=== PATIENT | female | born 1985 | race Two or more races ===

== ENCOUNTER → 2016-09-22 | Outpatient (REF) | payer OTHER | LOC: M LAB REF 16:42 | PROVIDERS: ATTEND Nurse Practitioner Family | DX: Z32.01 Encounter for pregnancy test, result positive (principal) ==

== ENCOUNTER → 2016-10-14 | Outpatient (CLI) | payer OTHER | LOC: M LRY 11:05 | PROVIDERS: ATTEND Advanced Practice Midwife | DX: Z36 Encounter for antenatal screening of mother (principal); Z3A.00 Weeks of gestation of pregnancy not specified ==

== ENCOUNTER → 2016-10-28 | Outpatient (CLI) | payer OTHER | LOC: M LRY 09:25 | PROVIDERS: ATTEND Advanced Practice Midwife | DX: Z36 Encounter for antenatal screening of mother (principal); Z3A.00 Weeks of gestation of pregnancy not specified ==

== ENCOUNTER → 2016-12-29 | Outpatient (CLI) | payer OTHER ==
--- NOTE | 2016-12-30 07:51 | REP ---
Clinical: Anatomical evaluation. Comparison: None . Findings: Examination demonstrates a single live intrauterine in variable presentation. motion is identified by technologist. Placenta is noted anteriorly and grade zero without evidence for placenta previa or abruption. Amniotic fluid volume is normal. Cervix measures 4.1 cm in length and appears closed. No evidence for nuchal cord. Gestational age by current measurements 19 weeks 6 days with BERTHA 05/19/2017 . FHR equals 147 beats per minute. BPD 4.8 cm 20 weeks 4 days HC 17.2 cm 19 weeks 6 days AC 15.2 cm 20 weeks 3 days FL 3.1 cm 19 weeks 5 days HL 3.1 cm 20 weeks 1 day HC/AC ratio 1.14 Estimated weight 330 grams ( 54th percentile). Anatomical assessment demonstrates normal structures including cranium, choroid plexus, cavum, cerebellum/posterior fossa, lungs, diaphragm, stomach, cord insertion/three-vessel cord, kidneys/bladder, spine, and upper extremities. Limited evaluation of the facial features, heart/ventricular outflow tracts and lower extremities noted. Impression: Single live intrauterine in cephalic presentation. Anatomical limitations as described above may warrant reevaluation and follow-up. Signed by Romie Noyola MD 12/30/2016 07:43 A
== END ==
LOC: M SMT 13:45
PROVIDERS: ATTEND Specialist
DX: Z34.82 Encounter for supervision of other normal pregnancy, second trimester (principal); Z3A.19 19 weeks gestation of pregnancy

== ENCOUNTER → 2017-02-10 | Outpatient (CLI) | payer OTHER ==
[~2017-02-10] MED LIST: ACET50TA PO; IBUP-1114 PO; PRENTAB9 PO; RANI1TAB6 PO
[2017-02-10 18:20] LABS: MEAN CORPUSCULAR HEMOGLOBIN 30.5 pg (27.0-33.0); MEAN CORPUSCULAR VOLUME 87.1 fl (80.0-96.0); RED CELL DISTRIBUTION WIDTH 13.4 % (11.5-14.5); WHITE BLOOD COUNT 15.8 K/mm3 (4.0-10.0)
== END ==
LOC: M LRY 10:29
PROVIDERS: ATTEND Advanced Practice Midwife
DX: Z36 Encounter for antenatal screening of mother (principal); Z3A.00 Weeks of gestation of pregnancy not specified

== ENCOUNTER → 2017-02-14 | Outpatient (CLI) | payer OTHER ==
--- NOTE | 2017-02-14 16:25 | REP ---
Obstetric ultrasound for follow-up of anatomy: The prior study dated 12/29/2016 was unable to adequately demonstrate the facial features, heart and ventricular outflow tracts and lower extremities. On the study today the four-chamber view of the heart and the upper and lower extremities are adequately demonstrated and are unremarkable. The cardiac right and left ventricular outflow tracts are again unable to be satisfactorily demonstrated. There is a single intrauterine gestation in a vertex presentation. There is movement and cardiac activity, the heart rate is 144 beats per minute. The placenta is right lateral without previa or abruptio and is grade one maturity. The amniotic fluid volume subjectively is normal. The cervix measures 3.8 cm length. Gestational age by the ultrasound today is 26 weeks 6 days with an BERTHA of 05/17/2017. Gestational age by the first ultrasound is 26 weeks 4 days. weight is 1000, 21 grams (2 pounds, 4 ounces). This is the 55th percentile for 26 weeks 4 days. Signed by Nikko Stephens MD 02/14/2017 04:16 P
== END ==
LOC: M SMT 14:12
PROVIDERS: ATTEND Advanced Practice Midwife
DX: Z34.82 Encounter for supervision of other normal pregnancy, second trimester (principal); Z36 Encounter for antenatal screening of mother; Z3A.26 26 weeks gestation of pregnancy

== ENCOUNTER → 2017-03-10 | Outpatient (CLI) | payer OTHER ==
--- NOTE | 2017-03-10 15:52 | REP ---
Clinical: Anatomical re-evaluation. Comparison: 02/14/2017 . Findings: Examination demonstrates a single live intrauterine in cephalic presentation. motion is identified by technologist. Placenta is noted right laterally and grade zero without evidence for placenta previa or abruption. Amniotic fluid volume is normal. Cervix measures 3.9 cm in length and appears closed. No evidence for nuchal cord. Gestational age by LMP 30 weeks 0 days with BERTHA 05/19/2017 . Gestational age by current measurements 30 weeks 1 day with BERTHA 05/18/2017 . FHR equals 150 beats per minute. Amniotic fluid index equals 10.8 cm (9.0 - 23.4). Estimated weight 1593 grams ( 54th percentile). Anatomical assessment demonstrates normal structures including cranium, choroid plexus, cavum, cerebellum/posterior fossa, lungs, four-chamber heart/ left ventricular outflow tracts, diaphragm, stomach, cord insertion/three-vessel cord, kidneys/bladder, spine. Impression: Single live intrauterine in cephalic presentation demonstrating appropriate interval growth. In conjunction with prior examination and with the exception of the right cardiac ventricular outflow tract, anatomical assessment is complete and normal. Signed by Romie Noyola MD 03/10/2017 03:43 P
== END ==
LOC: M SMT 14:15
PROVIDERS: ATTEND Obstetrics & Gynecology
DX: Z36 Encounter for antenatal screening of mother (principal); Z3A.30 30 weeks gestation of pregnancy

== ENCOUNTER → 2017-03-11 | Outpatient (CLI) | payer OTHER ==
[2017-03-11 19:01] LABS: MEAN CORPUSCULAR HEMOGLOBIN 30.4 pg (27.0-33.0); MEAN CORPUSCULAR HGB CONC 35.7 g/dl (32.0-36.5); MEAN CORPUSCULAR VOLUME 85.3 fl (80.0-96.0); RED CELL DISTRIBUTION WIDTH 13.5 % (11.5-14.5); WHITE BLOOD COUNT 14.7 K/mm3 (4.0-10.0)
[2017-03-11 20:23] LABS: ALT/SGPT 17 U/L (12-78); AST/SGOT 16 U/L (15-37); BILIRUBIN,TOTAL 0.5 MG/DL (0.2-1.0); CREATININE FOR GFR 0.65 MG/DL (0.55-1.02); GLOMERULAR FILTRATION RATE > 60.0 (>60); URIC ACID 3.4 MG/DL (2.6-6.0)
== END ==
LOC: M LRY 09:44
PROVIDERS: ATTEND Obstetrics & Gynecology
DX: O16.9 Unspecified maternal hypertension, unspecified trimester (principal); Z3A.00 Weeks of gestation of pregnancy not specified

== ENCOUNTER → 2017-03-31 | Outpatient (CLI) | payer OTHER ==
--- NOTE | 2017-04-03 04:51 | REP ---
Clinical: well-being Comparison: 03/10/2017 . Findings: Examination demonstrates a single live advanced intrauterine in cephalic presentation. motion is identified by technologist. Placenta is noted anterior fundally and grade II without evidence for placenta previa or abruption. Amniotic fluid volume is normal. Cervix measures 4.4 cm in length and appears closed. Nuchal cord cannot be excluded. Gestational age by first US 33 weeks 0 days with BERTHA 05/19/2017 . Gestational age by current measurements 33 weeks 3 days with BERTHA 05/16/2017 . FHR equals 158 beats per minute. BPD 8.2 cm 33 weeks 0 days HC 30.3 cm 33 weeks 5 days AC 30.8 cm 34 weeks 5 days FL 6.6 cm 34 weeks 0 days HL 5.5 cm 32 weeks 0 days HC/AC ratio 0.98 Estimated weight 2384 grams ( 69th percentile). Biophysical profile score equals 8/8. Amniotic fluid index = 13.7 cm (8.3 - 24.5). Umbilical cord SD ratio equals 2.12. Impression: Single live advanced gestation in cephalic presentation demonstrating appropriate interval growth. Biophysical profile score, amniotic fluid index, estimated weight are all within normal range. Signed by Romie Noyloa MD 04/03/2017 04:42 A
== END ==
LOC: M RAD 18:14
PROVIDERS: ATTEND Obstetrics & Gynecology
DX: O09.523 Supervision of elderly multigravida, third trimester (principal); Z3A.33 33 weeks gestation of pregnancy

== ENCOUNTER → 2017-04-06 | Outpatient (CLI) | payer OTHER ==
--- NOTE | 2017-04-07 03:08 | REP ---
Clinical: well-being. Comparison: 03/31/2017 . Findings: Examination demonstrates a single live intrauterine in cephalic presentation. motion is identified by technologist. Placenta is noted anterior fundal and grade one without evidence for placenta previa or abruption. Amniotic fluid volume is normal. Nuchal cord cannot be excluded. Gestational age by first US 33 weeks 6 days with BERTHA 05/19/2017 . FHR equals 150 beats per minute. BPP = 8/8 Amniotic fluid index = 11.2 cm (8.1 - 24.8) Umbilical cord SD ratio = 2.45 (2.00 - 3.00) Impression: Single live advanced gestation in cephalic presentation. Biophysical profile score equals 8/8. Signed by Romie Noyola MD 04/07/2017 03:00 A
== END ==
LOC: M SMT 14:12
PROVIDERS: ATTEND Obstetrics & Gynecology
DX: O13.3 Gestational [pregnancy-induced] hypertension without significant proteinuria, third trimester (principal); Z36 Encounter for antenatal screening of mother; Z3A.33 33 weeks gestation of pregnancy

== ENCOUNTER → 2017-04-12 | Outpatient (REF) | payer OTHER | LOC: M LAB REF 12:40 | PROVIDERS: ATTEND Obstetrics & Gynecology | DX: O13.3 Gestational [pregnancy-induced] hypertension without significant proteinuria, third trimester (principal); Z3A.00 Weeks of gestation of pregnancy not specified ==

== ENCOUNTER → 2017-04-13 | Outpatient (CLI) | payer OTHER ==
--- NOTE | 2017-04-13 16:12 | REP ---
OB ULTRASOUND AND BIOPHYSICAL PROFILE: Real-time sonographic evaluation of the gravid uterus is performed. There is a single living intrauterine gestation. The estimated gestational age is reportedly 34 weeks 6 days, EDC 05/19/2017. heart rate 150 beats per minute. Amniotic fluid within normal limits. JARED is 8.5 with a normal range of 7.9 to 24.9. S/D ratio 2.61, within normal range. RI 0.62, within normal range. position vertex. Biophysical profile score 8 out of 8. Placenta anterior and grade 1 with no previa or abruption. Signed by Nikko Woods MD 04/13/2017 07:16 P
== END ==
LOC: M SMT 14:30
PROVIDERS: ATTEND Obstetrics & Gynecology
DX: O13.3 Gestational [pregnancy-induced] hypertension without significant proteinuria, third trimester (principal); Z36.89 Encounter for other specified antenatal screening; Z3A.35 35 weeks gestation of pregnancy

== ENCOUNTER → 2017-04-19 | Outpatient (CLI) | payer OTHER ==
--- NOTE | 2017-04-20 14:16 | REP ---
Clinical: well-being. Comparison: 04/13/2017 . Findings: Examination demonstrates a single live intrauterine in cephalic presentation. motion is identified by technologist. Placenta is noted anteriorly and grade II without evidence for placenta previa or abruption. Amniotic fluid volume is normal. Nuchal cord cannot be excluded. Gestational age by LMP 35 weeks 5 days with BERTHA 05/19/2017 . Gestational age by current measurements 35 weeks 3 days with BERTHA 05/21/2017 . FHR equals 153 beats per minute. BPD 8.8 cm 35 weeks 3 days HC 32.6 cm 37 weeks 0 days AC 31.7 cm 35 weeks 4 days FL 6.8 cm 35 weeks 1 day HC/AC ratio 1.03 Estimated weight 2722 grams ( 48th percentile). Biophysical profile score equals 8/8. Amniotic fluid index 8.5 cm. Umbilical cord SD ratio equals 2.23 Impression: 1. Single live advanced gestation in cephalic presentation. Demonstrating appropriate interval growth. 2. Anatomical assessment cannot be excluded. 3. Biophysical profile score equals 8/8. Signed by Romie Noyola MD 04/20/2017 02:07 P
== END ==
LOC: M SMT 13:52
PROVIDERS: ATTEND Obstetrics & Gynecology
DX: Z36.89 Encounter for other specified antenatal screening (principal); Z3A.35 35 weeks gestation of pregnancy

== ENCOUNTER 2017-04-24 05:52 | Inpatient (IN) | payer OTHER ==
[2017-04-24] VITALS (15 sets, daily range): BP systolic 108–142; BP diastolic 58–90
[~2017-04-24] VITALS: Ht 167.6 cm; Wt 122.9 kg
[2017-04-24 06:58] LABS: MEAN CORPUSCULAR HEMOGLOBIN 28.9 pg (27.0-33.0); MEAN CORPUSCULAR HGB CONC 33.9 g/dl (32.0-36.5); MEAN CORPUSCULAR VOLUME 85.1 fl (80.0-96.0)
[2017-04-24] MEDS ORDERED: PRENTAB9 PO (07:30)
[2017-04-24] MEDS ORDERED: RANI1TAB6 PO (07:30)
[2017-04-24] MEDS ORDERED: ACET50TA PO (07:30)
[2017-04-24] MEDS: miSOPROStol 50 MCG 1/2 TAB (S0191) PO SCH ×4 (08:44→21:06)
--- NOTE | 2017-04-24 09:15 | HPE ---
DATE OF ADMISSION: 04/24/2017 Megan is a 32-year-old, 1, para 0, at 37 weeks gestation, with an estimated date of confinement (EDC) of 05/15/2017, based on first trimester ultrasound. She presents to labor and delivery today for induction of labor per consult with Dr. Mario Holedr due to gestational hypertension. She denies regular contractions, leakage of fluid and vaginal bleeding. The fetus has been active. Her care was initiated at [facility] in the first trimester. 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 When she maintained normal thyroid labs throughout her with an onset of gestational hypertension in the third trimester, she underwent antepartum testing that had returned all normal BPPs, normal amount of fluid and normal growth of the fetus. OBSTETRICAL HISTORY: Primigravida. OB LABS: Blood type O+, antibody screen negative, rubella immune, VDRL nonreactive. Urine culture no growth. Hepatitis B surface antigen negative, HIV negative. Hepatitis C antibody nonreactive. Gonorrhea and chlamydia negative. TSH and free T4 normal. She did decline genetic serum screening markers. Gestational diabetic screening normal at 123. GBS is negative. Her most recent pre-eclamptic profile with a uric acid of 3.4, AST 16, ALT 17, LDH 186. PAST MEDICAL HISTORY: Thyroid disease. SURGERIES: Cholecystectomy. FAMILY HISTORY: Diabetes, hypertension, Raynaud's, and lupus. SOCIAL HISTORY: The patient is to an active duty soldier. She is a nonsmoker. Denies alcohol and drug use. No history of sexually transmitted diseases (STDs) and denies history of abuse physical, sexual and emotional. ALLERGIES: NO KNOWN DRUG ALLERGIES. CURRENT MEDICATIONS: - vitamin OBJECTIVE: Temperature 99.3, pulse 104, blood pressure 134/90 with a repeat of 132/76, respirations 18. She is alert and oriented times three. She is in no apparent distress, smiling and talkative. heart rate is 150 with moderate variability, positive accelerations, no decelerations. There is no pattern of contractions. Her abdomen is gravid, cephalic presentation with an estimated weight 7 pounds. Sterile vaginal exam: 1 cm dilated, 75% effaced, -3 station. Large amount of bloody show with the exam. The cervix is posterior, however, quite soft. ASSESSMENT: Intrauterine at 37 weeks, gestational hypertension, heart rate category 1. PLAN: Admit patient to labor and delivery. Labs including a repeat pre-eclamptic profile. Saline lock. Out of bed ad aretha. Regular diet at this time. Misoprostol 50 mcg by mouth every 4 hours for cervical ripening. I did review risks to induction including increased risk for section, intolerance to labor, failed induction. The patient and her family had all of their questions answered and do desire to proceed with induction at this time. I do anticipate cervical ripening labor and a spontaneous vaginal delivery.
[2017-04-24 12:56] LABS: ALT/SGPT 18 U/L (12-78); AST/SGOT 15 U/L (15-37); BILIRUBIN,TOTAL 0.5 MG/DL (0.2-1.0); CREATININE FOR GFR 0.55 MG/DL (0.55-1.02); GLOMERULAR FILTRATION RATE > 60.0 (>60); URIC ACID 3.3 MG/DL (2.6-6.0)
[2017-04-24] MEDS ORDERED: PROMETHAZINE INJ 25 MG/ML VIAL (J2550) IV ONE (23:45)
[2017-04-24] MEDS ORDERED: BUTORPHANOL 2 MG/ML INJ (J0595) IV ONE (23:45)
[2017-04-25] VITALS (39 sets, daily range): BP systolic 102–165; BP diastolic 54–88
[2017-04-25] MEDS: miSOPROStol 50 MCG 1/2 TAB (S0191) PO SCH (01:15)
[2017-04-25] MEDS ORDERED: OXYTOCIN DRIP 30 UNITS in APPROPRIATE DILUENT 1 EA IV SCH ×2 (05:00→15:02)
[2017-04-25] MEDS ORDERED: BUTORPHANOL 2 MG/ML INJ (J0595) IV ONE (08:00)
[2017-04-25] MEDS ORDERED: PROMETHAZINE INJ 25 MG/ML VIAL (J2550) IV ONE (08:00)
[2017-04-25] MEDS: LR 1,000 ML IV SCH ×3 (08:08→13:07)
[2017-04-25] MEDS: PRENATAL VITAMINS CHEWABLE TABLET PO SCH (09:00)
[2017-04-25] MEDS ORDERED: FENTANYL 2MCG/ML ROPIVACAINE 0.2% IN 0.9% NACL 200ML IVBAG As Ordered ONE (10:16)
[2017-04-25] MEDS ORDERED: EPIDURAL COMMENT XX SCH (12:30)
[2017-04-25] MEDS ORDERED: LACTATED RINGER'S 1000 ML IV PRN (12:30)
[2017-04-25] MEDS ORDERED: EPIDURAL/PCA KEYS XX PRN (12:30)
[2017-04-25] MEDS ORDERED: NALOXONE INJ 0.4 MG/1 ML VIAL (J2310) IV PRN (12:30)
[2017-04-25] MEDS ORDERED: diphenhydrAMINE INJ 50MG/ML VIAL (J1200) IV PRN (12:30)
[2017-04-25] MEDS ORDERED: ONDANSETRON 4MG/2ML VIAL (J2405) IV PRN ×2 (12:30→15:15)
[2017-04-25] MEDS ORDERED: FENTANYL/ROPIVACAINE/NACL BAG 200 ML EPIDURAL SCH (12:30)
[2017-04-25] MEDS ORDERED: REFRIGERATOR IV KEYS XX PRN (12:30)
[2017-04-25] MEDS ORDERED: ePHEDrine SULFATE 25 MG/5 ML(5MG/ML) SYRINGE IV PRN (12:30)
[2017-04-25] MEDS ORDERED: LR 1,000 ML IV SCH (15:02)
[2017-04-25] MEDS ORDERED: ACETAMINOPHEN 500 MG TAB PO PRN (15:15)
[2017-04-25] MEDS ORDERED: RHOGAM 300 MCG (1500 IU) INJ (J2790) IM SCH (15:15)
[2017-04-25] MEDS ORDERED: DOCUSATE SODIUM 100 MG CAP PO PRN (15:15)
[2017-04-25] MEDS ORDERED: PROMETHAZINE 25 MG TAB PO PRN (15:15)
[2017-04-25] MEDS ORDERED: DIBUCAINE 1% OINTMENT 30GM TOP PRN (15:15)
[2017-04-25] MEDS ORDERED: MEASLES,MUMPS,RUBELLA VACCINE INJ (MMR-II) (90707) SC SCH (15:15)
[2017-04-25] MEDS: IBUPROFEN 800 MG TAB PO PRN (16:27)
[2017-04-26 06:00] VITALS: BP 108/62
[2017-04-26] MEDS: PRENATAL VITAMINS CHEWABLE TABLET PO SCH (09:31)
[2017-04-26] MEDS: IBUPROFEN 800 MG TAB PO PRN ×2 (09:34→17:38)
[2017-04-26 18:00] VITALS: BP 128/76
[2017-04-27] MEDS: IBUPROFEN 800 MG TAB PO PRN ×2 (05:41→12:57)
[2017-04-27 06:00] VITALS: BP 120/70
[2017-04-27] MEDS ORDERED: IBUP-1114 PO (07:24)
[2017-04-27] MEDS: PRENATAL VITAMINS CHEWABLE TABLET PO SCH (12:56)
== END 2017-04-27 15:00 | disposition home or self-care (01) | DRG 775 ==
LOC: M LDI 05:52 → M OBS 04-25 17:13
PROVIDERS: ADMIT Obstetrics & Gynecology; ATTEND Obstetrics & Gynecology
PROC: 3E0DXGC Introduction of Other Therapeutic Substance into Mouth and Pharynx, External Approach (ICD-10-PCS; 2017-04-24)
PROC: 10E0XZZ Delivery of Products of Conception, External Approach (ICD-10-PCS; principal; 2017-04-25)
PROC: 0KQM0ZZ Repair Perineum Muscle, Open Approach (ICD-10-PCS; 2017-04-25)
DX: O13.4 Gestational [pregnancy-induced] hypertension without significant proteinuria, complicating childbirth (principal); Z37.0 Single live birth; Z3A.37 37 weeks gestation of pregnancy; Z90.49 Acquired absence of other specified parts of digestive tract; Z79.899 Other long term (current) drug therapy; O69.82X0 Labor and delivery complicated by other cord entanglement, without compression, not applicable or unspecified; O70.1 Second degree perineal laceration during delivery

== ENCOUNTER → 2018-07-16 | Outpatient (REF) | payer OTHER ==
[~2018-07-16] MED LIST changes: -ACET50TA PO; +MAPA500T2 PO
== END ==
LOC: M LAB REF 17:04
PROVIDERS: ATTEND Nurse Practitioner Family
DX: Z32.01 Encounter for pregnancy test, result positive (principal); Z36.89 Encounter for other specified antenatal screening

== ENCOUNTER → 2018-09-13 | Outpatient (CLI) | payer OTHER ==
[2018-09-13 13:39] LABS: BASO % 0.3 % (0.0-1.0); EOS # 0.1 10^3/uL (0.0-0.50); EOS % 1.2 % (0.0-3.0); HEMATOCRIT 41.3 % (36.0-47.0); HEMOGLOBIN 14.2 g/dl (12.0-15.5); LYMPH # 1.8 10^3/uL (1.5-4.5); LYMPH % 16.3 % (24.0-44.0); MEAN CORPUSCULAR HEMOGLOBIN 29.9 pg (27.0-33.0); MEAN CORPUSCULAR HGB CONC 34.4 g/dl (32.0-36.5); MEAN CORPUSCULAR VOLUME 86.9 fl (80.0-96.0); MONO # 0.5 10^3/uL (0.0-0.8); MONO % 4.8 % (0.0-5.0); NEUTROPHILS # 8.5 10^3/uL (1.8-7.7); NEUTROPHILS % 76.9 % (36.0-66.0); PLATELET COUNT, AUTOMATED 233 10^3/uL (150-450); RED BLOOD COUNT 4.75 10^6/uL (4.00-5.40)
[2018-09-13 13:58] LABS: ALT/SGPT 48 U/L (12-78); BILIRUBIN,TOTAL 0.8 MG/DL (0.2-1.0); CREATININE FOR GFR 0.62 MG/DL (0.55-1.30); FREE T4 1.08 NG/DL (0.76-1.46); GLOMERULAR FILTRATION RATE > 60.0 (>60); GLUCOSE CHALLENGE TEST 1 HOUR 130 MG/DL (LESS THAN 140); LDH LACTATE DEHYDROGENASE 187 U/L (84-246); URIC ACID 3.5 MG/DL (2.6-6.0)
[2018-09-13 14:17] LABS: TOTAL PROTEIN,RANDOM URINE 15.3 MG/DL (0.0-12.0)
[2018-09-13 16:02] LABS: CHLAMYDIA DNA AMPLIFICATION NEGATIVE (NEGATIVE); GC DNA AMPLIFICATION NEGATIVE (NEGATIVE)
[2018-09-14 11:02] LABS: RUBELLA IgG QUALITATIVE IMMUNE (IMMUNE)
[2018-09-14 11:29] LABS: HEPATITIS C VIRUS ABY INDEX < 0.0 INDEX (<0.8)
[2018-09-14 11:31] LABS: HIV 1&2 SCREEN CENTAUR NEGATIVE (NEGATIVE)
== END ==
LOC: M SMT 08:53
PROVIDERS: ATTEND Advanced Practice Midwife
DX: Z3A.11 11 weeks gestation of pregnancy (principal)

== ENCOUNTER → 2018-10-05 | Outpatient (CLI) | payer OTHER ==
--- NOTE | 2018-10-05 13:51 | REP ---
Clinical: Anatomical evaluation. Comparison: None . Findings: Examination demonstrates a single live intrauterine in cephalic presentation. motion is identified by technologist. Placenta is noted anterior and grade grade zero without evidence for placenta previa or abruption. Amniotic fluid volume is normal. Cervix measures 3.8 cm in length and appears closed. No evidence for nuchal cord. Gestational age by LMP 18 weeks 4 days with BERTHA 03/04/2019 . Gestational age by current measurements 18 weeks 3 days with BERTHA 03/05/2019 . FHR equals 152 beats per minute. BPD 4.3 cm 19 weeks 0 days HC 15.9 cm 18 weeks 5 days AC 12.8 cm 18 weeks 3 days FL 2.6 cm 18 weeks 0 days HL 2.6 cm 18 weeks 1 day HC/AC ratio 1.24 Estimated weight 231 grams ( 34th percentile). Anatomical assessment demonstrates normal structures including cranium, choroid plexus, lungs, four-chamber heart/ventricular outflow tracts, diaphragm, stomach, cord insertion/three-vessel cord, bladder, spine, and extremities. Impression: 1. Single live intrauterine in cephalic presentation demonstrating appropriate interval growth. 2. Limited evaluation of the cavum, posterior fossa, facial features, and kidneys warrant reevaluation and follow-up. Electronically Signed by Romie Noyola MD 10/05/2018 01:43 P
== END ==
LOC: M RAD 11:32
PROVIDERS: ATTEND Advanced Practice Midwife
DX: O99.212 Obesity complicating pregnancy, second trimester (principal); Z3A.19 19 weeks gestation of pregnancy